=== PATIENT | male | born 1955 | race Caucasian/White ===

== ENCOUNTER 2025-01-24 11:15 | Day surgery (SDC) | payer MEDICARE, SELFPAY ==
--- NOTE | 2025-01-24 06:46 | P.HP_ITS ---
History of Present Illness History of Present Illness Date Patient Seen: 01/24/25 Time Patient Seen: 06:46 Chief complaint: SDC Narrative: Patient presents for screening colonoscopy today. Meds Home Medications and Allergies Home Medications ?Medication ?Instructions ?Recorded ?Confirmed ?Type sodium,potassium,mag sulfates 17.5 See Rx Instructions PO .COMPLEX 12/19/24 Rx gram-3.13 gram-1.6 gram oral soln #354 mL (Suprep Bowel Prep Kit) Exam Narrative Exam Narrative: Const General: comfortable Orientation: alert and oriented x3 Resp Effort & Inspection: normal respiratory effort and able to speak in complete sentences Cardio Rate: regular rate GI Palpation: soft (NT) Extrem General: no pedal edema and no calf tenderness Assessment & Plan Assessment and plan (1) Encounter for screening colonoscopy: Status: Acute Plan Plan screening colonoscopy, possible biopsy. The risks, benefits and options regarding the procedure were explained to the patient in detail. Risk discussion included but not limited to: bleeding, perforation, missed lesion, unable to reach cecum. The patient was encouraged to ask questions and they were answered to their satisfaction. The patient understands and is agreeable to proceed. Time-Based Coding :: [TOTAL MINUTES] spent with patient and on the chart (including review of chart, obtaining history, exam, reviewing outside data, placing orders, documenting exam and treatment plan, and counseling patient) on [DATE]. PROFEE Portrait Consultant Document charge(s): Yes Charge Codes Inpatient/observation care including admit and discharge same day: [id number]
[2025-01-24 12:16] VITALS: BP 156/87; PULSE 63; RESP 17; TEMP 36.3; O2SAT 97
[2025-01-24] MEDS: LACTATED RINGERS 1,000 ML 42 ML IV (12:25)
--- NOTE | 2025-01-24 13:06 | PM.OP.COLON ---
Operative Date/Time/Diagnoses Date of procedure: 01/24/25 Time of procedure: 13:31 Pre-op diagnosis: Screening colonoscopy Post-op diagnosis: same Procedure & Clinicians Study performed: Colonoscopy Same procedure(s) as scheduled: Yes Indications: H/O polyps, screening colonoscopy Surgeon: Rivera Ashraf Anesthesia Type: MAC +/- Procedure Notes SCOAP/Timeout: Performed Procedure in detail: Colonoscopy Patient placed in left lateral recumbent position. Time out was performed. Procedural sedation was administered by anesthesia. Examination began with a thorough inspection of the perianal area. There was no evidence of fissures, fistulae, external hemorrhoids or cutaneous malignancy. The colonoscope was then placed into the rectum and the lumen was insufflated with carbon dioxide. The scope was carefully advanced forward. Ultimately the cecum was intubated and confirmed by identification of the ileocecal valve, the appendiceal orifice and the confluence of the taenia. The scope was then slowly withdrawn examining the colon thoroughly in all directions. In the rectum, retroflexion of the scope was performed for inspection of the distal rectum and anal canal. ?Significant colonoscopy findings: ?1. Quality of the preparation-good, [place] 2-3, improved with irrigation/suction ?2. Normal colonoscopy, no polyps, strictures, masses 3. Incidental note of internal hemorrhoids Scope withdrawal time: 6 Findings: internal hemorrhoids Specimen(s): none sent Complications: none Impression: Normal colonoscopy Incidental internal hemorrhoids Post-procedure Recommendations: Colonoscopy in 10 years Plan for aftercare: PACU then home Follow up: as needed Disposition: PACU
[2025-01-24 13:25] VITALS: BP 128/76; PULSE 58; RESP 16; O2SAT 97
[2025-01-24 13:26] VITALS: BP 135/79; PULSE 60; RESP 16; TEMP 36.2; O2SAT 97
[2025-01-24 13:30] VITALS: BP 133/74; PULSE 61; RESP 16; O2SAT 98
[2025-01-24 13:37] VITALS: BP 129/82; PULSE 59; RESP 16; O2SAT 97
== END 2025-01-24 13:49 | disposition home or self-care (01) ==
PROVIDERS: PCP Physician Assistant; Referring Provider Surgery; Visit Provider Surgery
PROC: 0DJD8ZZ Inspection of Lower Intestinal Tract, Via Natural or Artificial Opening Endoscopic (ICD-10-PCS; CPT 45378; principal; 2025-01-24 12:30)
DX: Z12.11 Encounter for screening for malignant neoplasm of colon (principal); G47.33 Obstructive sleep apnea (adult) (pediatric); K64.8 Other hemorrhoids
CPT/HCPCS: G0105; J2704